=== PATIENT | male | born 1950 | race Caucasian/White ===

== ENCOUNTER 2019-09-26 17:53 | Emergency (ER) | payer MEDICARE, OTHER ==
--- NOTE | 2019-09-26 18:13 | EDM.PDOC ---
ED HPI GENERAL MEDICAL PROBLEM - General Chief Complaint: Back Pain or Injury Stated Complaint: TOOTH INFECTION RT SIDE OF MOUTH Time Seen by Provider: 09/26/19 18:05 Source of Information: Reports: Patient History Limitations: Reports: No Limitations - History of Present Illness Onset: Today, Gradual Duration: Getting Worse Location: Reports: Face, Other (R face swelling) Quality: Reports: Ache Associated Symptoms: Denies: Diaphoresis, Fever/Chills, Headaches, Nausea/Vomiting Treatments [employer]IDE: Reports: NSAIDS, Other (see below) - Related Data Allergies Allergy/AdvReac Type Severity Reaction Status Date / Time Penicillins Allergy Cannot Verified 09/26/19 18:19 Remember Home Meds: Home Meds Clindamycin HCl 300 mg PO Q6HR #30 capsule 09/26/19 [Rx] DULoxetine [Cymbalta] 1 tab PO BEDTIME 09/26/19 [History] Past Medical History Cardiovascular History: Reports: Hypertension ED ROS GENERAL - Review of Systems Review Of Systems: See Below Constitutional: Denies: Fever, Night Sweats HEENT: Reports: Dental Pain. Denies: Ear Pain, Eye Pain, Vision Change Respiratory: Denies: Shortness of Breath Cardiovascular: Denies: Chest Pain Neurological: Reports: No Symptoms Psychiatric: Reports: Anxiety, Other (Admits to considerable anxiety seeing a MD) ED EXAM,LOWER BACK PAIN/INJURY - Physical Exam Exam: See Below Exam Limited By: No Limitations General Appearance: Alert, WD/WN, Anxious, Mild Distress Eye Exam: Bilateral Eye: Normal Inspection, PERRL Ears: Normal External Exam Nose: Normal Inspection, Other (R cheek erythematous and swollen) Throat/Mouth: Normal Lips, Other (Marked caries w/ missing teeth, especially R upper. R upper gums markedly inflammed) Head: Atraumatic, Normocephalic Neck: Supple, Non-Tender. No: Lymphadenopathy (R), Lymphadenopathy (L) Respiratory/Chest: No Respiratory Distress, Lungs Clear Cardiovascular: Other (Initial BP elevated) Course - Vital Signs Last Recorded V/S: Last Vital Signs Temp 37.2 C 09/26/19 18:25 Pulse 74 09/26/19 18:25 Resp 14 09/26/19 18:25 BP 259/117 H 09/26/19 18:25 Pulse Ox 97 09/26/19 18:25 Departure - Departure Time of Disposition: 18:24 Disposition: Home, Self-Care 01 Condition: Good Clinical Impression: Dental abscess, Hypertension - Discharge Information Prescriptions: Clindamycin HCl 300 mg PO Q6HR #30 capsule Instructions: Dental Abscess, [id number], Managing Your Hypertension Referrals: PCPKunal [Primary Care Provider] - Forms: ED Department Discharge Additional Instructions: See a dentist as soon as possible. Start the antibiotic clindamycin. Have your blood pressure checked in a nonthreatening situation (not doctor's office or emergency department). Follow-up with your primary care physician regarding hypertension. Try not add any salt to your food. Get some sort of aerobic exercise at least 30 minutes a day(walking or bicycling). Sepsis Event Note (ED) - Focused Exam Vital Signs: Vital Signs Temp Pulse Resp BP Pulse Ox 09/26/19 18:25 37.2 C 74 14 259/117 H 97 09/26/19 18:08 37.2 C 74 14 259/117 H 97
== END 2019-09-26 18:48 | disposition home or self-care (01) ==
LOC: JP.ED 17:53
DX: K04.7 Periapical abscess without sinus (principal); I10 Essential (primary) hypertension; Z88.0 Allergy status to penicillin; Z79.899 Other long term (current) drug therapy
CPT/HCPCS: 99282; 99283